=== PATIENT | female | born 1960 | race Caucasian/White ===

== ENCOUNTER 2017-07-08 22:02 | Emergency (ER) | payer BC, OTHER ==
--- NOTE | 2017-07-08 23:56 | RAD ---
LEFT KNEE FOUR VIEWS: 07/08/17 HISTORY: 57-year-old female with history of left knee pain following an injury from a fall. No fracture, dislocation, or other significant acute osseous abnormality. Mild degenerative changes. IMPRESSION: Mild degenerative changes without fracture or dislocation. POS: [facility]
== END 2017-07-08 23:58 | disposition home or self-care (01) ==
LOC: NAV ERS 22:02
DX: S83.412A Sprain of medial collateral ligament of left knee, initial encounter (principal); E66.9 Obesity, unspecified; F17.210 Nicotine dependence, cigarettes, uncomplicated; Z79.899 Other long term (current) drug therapy; W18.30XA Fall on same level, unspecified, initial encounter

== ENCOUNTER 2018-02-16 16:34 | Outpatient (CLI) | payer BC ==
--- NOTE | 2018-02-16 19:27 | RAD ---
TWO VIEWS CHEST: 02/16/18 HISTORY: Wheezing. PA and lateral views of the chest is obtained on 02/16/18. Two views chest demonstrate the lungs to be well aerated. No evidence of active intrathoracic disease seen. No evidence of effusions, pneumonia or pneumothorax seen. IMPRESSION: Normal two views chest. POS: [facility]
== END 2018-02-16 16:35 | disposition home or self-care (01) ==
LOC: NAV RAD 16:34
PROVIDERS: ATTEND Family Medicine
DX: J40 Bronchitis, not specified as acute or chronic (principal); R06.2 Wheezing
CPT/HCPCS: 71046